=== PATIENT | male | born 1945 | race Caucasian/White ===

== ENCOUNTER 2020-12-01 17:06 | Emergency (ER) | payer MEDICARE ==
[2020-12-01] MEDS ORDERED: Zofran 4 MG/2 ML VIAL IV ONE (17:32)
[2020-12-01] MEDS ORDERED: Zofran 4 MG/2 ML VIAL ONE (17:32)
[2020-12-01] MEDS ORDERED: SUBLIMAZE 100 MCG/2 ML ONE ×2 (17:32→19:30)
[2020-12-01] MEDS ORDERED: SUBLIMAZE 100 MCG/2 ML IV ONE ×2 (17:32→19:25)
--- NOTE | 2020-12-01 17:48 | ERPHSYRPT ---
- History of Present Illness Source: patient Exam Limitations: no limitations Patient Subjective Stated Complaint: fall from ladder today, now has L hip and lower back pain and also L wrist pain Triage Nursing Assessment: pt to ED c/o fall from ladder today, approx 10 ft. did hit back of head, no LOC, does take warfarin at home. pt now c/o L hip, L wrist, and bilateral lower back pain rates 10/10 that is sharp with movement and ambulation. noted swelling to L wrist. L hip and back without signs of trauma. ambulatory with limp back to ED. limited ROM with L wrist Physician History: 75 yo wm fell off 10ft ladder in [place] earlier today. Pt is on coumadin for Afib. He denies LOC but did hit his head. He complains of L-spine/L-flank/L hip rigo n/mild C-spine pain/L wrist pain. Pt simply lost his balance on the ladder. Occurred: this afternoon Reason for Fall: slipped Injuries/Pain Location: neck, back, pelvis Loss of Consciousness: no loss of consciousness Quality: aching Severity of Pain-Max: severe Severity of Pain-Current: severe Modifying Factors: Improves With: movement Associated Symptoms (Fall): back pain, No abdominal pain, No confusion, No chest pain, No dizziness, No extremity injury, No headache, No lightheadedness, No muscle spasms, No nausea, No neck pain, No ringing in ears, No seizures, No sh ortness of breath, No slurred speech, No trouble walking, No vomiting, No vision changes Allergies/Adverse Reactions: No Known Drug Allergies Allergy (Verified 12/01/20 17:21) Home Medications: Aspirin [Oscar Aspirin] 81 mg PO DAILY 05/23/13 [History] Etodolac [Lodine] 500 mg PO BID 05/23/13 [History] Lansoprazole [Prevacid] 30 mg PO DAILY 05/23/13 [History] Lisinopril 40 mg PO DAILY 05/23/13 [History] Multivitamin [Daily Multivitamin] 1 each PO DAILY 05/23/13 [History] Paroxetine HCl [Paxil] 20 mg PO DAILY 05/23/13 [History] dilTIAZem HCl [Cardizem Cd] 120 mg PO DAILY 05/23/13 [History] Hydrochlorothiazide 25 mg [hydroDIURIL 25 MG] 25 mg PO DAILY 03/27/17 [History] Tamsulosin HCl 0.4 mg [Flomax 0.4 MG] 0.4 mg PO DAILY 03/27/17 [History] Warfarin Sodium 5 mg [Coumadin 5 MG] 0 mg PO UD 03/27/17 [History] Hx Tetanus, Diphtheria Vaccination/Date Given: Yes Hx Influenza Vaccination/Date Given: Yes Hx Pneumococcal Vaccination/Date Given: Yes (2019) Immunizations Up to Date: Yes Travel Risk - International Travel Have you traveled outside of the country in past 3 weeks: No - Coronavirus Screening Are you exhibiting any of the following symptoms?: No Close contact with a COVID-19 positive Pt in past 14-21 Days: No - Vaccine Status Have you recieved a Covid-19 vaccination: Yes [employer]: [employer] - Vaccination Dates Date of 1st Vaccination: 11/02/20 Date of 2cond Vaccination (if applicable): 11/15/20 Comment: dates approximate - Review of Systems Constitutional: No Symptoms Eyes: No Symptoms Ears, Nose, & Throat: No Symptoms Respiratory: No Symptoms Cardiac: No Symptoms Abdominal/Gastrointestinal: No Symptoms Genitourinary Symptoms: No Symptoms Skin: No Symptoms Neurological: No Symptoms Psychological: No Symptoms Endocrine: No Symptoms Hematologic/Lymphatic: No Symptoms Immunological/Allergic: No Symptoms - Past Medical History Pertinent Past Medical History: Yes Neurological History: Migraines ENT History: No Pertinent History Cardiac History: Arrhythmia, Other Respiratory History: No Pertinent History Endocrine Medical History: Diabetes Type II, Other Musculoskeletal History: Osteoarthritis GI Medical History: Colorectal Cancer, GERD History: Renal Disease Psycho-Social History: Anxiety, Depression Male Reproductive Disorders: No Pertinent History Other Medical History: colorectal CA 7 years ago, septic shock with multiple organ failure 09/2011. Colon CA removal, chemo, colostomy and reversal. R TKA 2018, Afib, Pacemaker - Past Surgical History Past Surgical History: Yes Neuro Surgical History: No Pertinent History Cardiac: Cardiac Catheterization, Pacemaker Respiratory: No Pertinent History Gastrointestinal: Bowel Surgery, Colon Resection, Hernia Repair Genitourinary: No Pertinent History Musculoskeletal: Orthopedic Surgery Male Surgical History: Prostate Surgery Other Surgical History: right knee milly placed after fx x four surgery,TURP - Social History Smoking Status: Former smoker Exposure to second hand smoke: No Drug Use: none Patient Lives Alone: No () Significant Family History: no pertinent family hx - Nursing Vital Signs Nursing Vital Signs: Initial Vital Signs Temperature 98.0 F 12/01/20 17:12 Pulse Rate 61 12/01/20 17:12 Respiratory Rate 20 12/01/20 17:12 Blood Pressure 161/74 12/01/20 17:12 O2 Sat by Pulse Oximetry 97 12/01/20 17:12 Pain Scale Pain Intensity 5 - Hari Coma Score Best Eye Response ([place]): (4) open spontaneously Best Verbal Response (Hari): (5) oriented Best Motor Response (Hari): (6) obeys commands Hari Total: 15 - Physical Exam General Appearance: no apparent distress Head Injury: tenderness (Mild occipital-superior cervical ttp) Eye Exam: PERRL/EOMI, eyes nml inspection ENT Exam: airway nml, No evidence of ENT injury, No clear fluid (ears), No clear fluid (nose) Neck Exam: supple, mid-line tenderness (Mild C-spine ttp) Respiratory/Chest Exam: normal breath sounds, No chest tenderness, No respiratory distress Cardiovascular Exam: normal heart sounds, regular rate/rhythm, No murmur Gastrointestinal Exam: soft, normal bowel sounds, No tenderness Back Exam: vertebral tenderness (L-spine-L flank area ttp) Extremity Exam: capillary refill <3 sec, pelvis stable (L-hip mildly ttp), No motor deficit Neurologic Exam: alert, oriented x 3, cooperative, cell changer II-XII nml as tested, normal mood/affect, nml station & gait, sensation nml Skin Exam: normal color, warm, dry SpO2 Interpretation: normal SpO2: 97 O2 Delivery: Room Air Procedures - Splinting Location of Splint: Left, Wrist Type of Splint: Orthoglass Short Arm Splint Splint Applied By: ED Physician Pre-Proc Neuro Vasc Exam: normal Post-Proc Neuro Vasc Exam: neurovascular intact - Course Nursing assessment & vital signs reviewed: Yes - Radiology Exams Wrist X-ray Interpretation: Interpreted by me (Distal radius fx) - CT Exams Head CT Interpretation: Discussed w/radiologist (NAD) Cervical Spine CT Interpretation: Discussed w/radiologist (DDD) Abdomen/Pelvis CT Interpretation: Discussed w/radiologist (L1 endplate fx) Ordered Tests: Active Orders 24 hr Category Date Time Status ABDOMEN AND PELVIS W CONTRAST [CT] Stat Exams 12/01/20 17:34 Taken CERVICAL SPINE WO CONTRAST [CT] Stat Exams 12/01/20 17:32 Taken HEAD WITHOUT CONTRAST [CT] Stat Exams 12/01/20 17:32 Taken WRIST (MIN 3 VIEWS) Stat Exams 12/01/20 18:51 Taken CBC W DIFF Stat Lab 12/01/20 17:30 Completed CMP Stat Lab 12/01/20 17:30 Completed PROTIME WITH INR Stat Lab 12/01/20 17:30 Completed PTT Stat Lab 12/01/20 17:30 Completed Medication Summary Discontinued Medications Generic Name Dose Route Start Last Admin Trade Name [place] PRN Reason Stop Dose Admin Hydrocodone Bitart/Acetaminophen 2 tab 12/01/20 19:40 12/01/20 19:46 [place] 5/325 Mg PO 12/01/20 19:41 2 tab SENT HOME W/ PATIENT ONE Administration Hydrocodone Bitart/Acetaminophen Confirm 12/01/20 19:45 [place] 5/325 Mg Administered 12/01/20 19:46 Dose 2 tab .ROUTE .STK-MED ONE Fentanyl Citrate 50 mcg 12/01/20 17:32 12/01/20 17:36 Sublimaze 100 Mcg/2 Ml IV 12/01/20 17:33 50 mcg STAT ONE Administration Fentanyl Citrate Confirm 12/01/20 17:32 Sublimaze 100 Mcg/2 Ml Administered 12/01/20 17:33 Dose 100 mcg .ROUTE .STK-MED ONE Fentanyl Citrate 50 mcg 12/01/20 19:25 12/01/20 19:31 Sublimaze 100 Mcg/2 Ml IV 12/01/20 19:26 50 mcg STAT ONE Administration Fentanyl Citrate Confirm 12/01/20 19:30 Sublimaze 100 Mcg/2 Ml Administered 12/01/20 19:31 Dose 100 mcg .ROUTE .STK-MED ONE Ondansetron HCl 4 mg 12/01/20 17:32 12/01/20 17:35 Zofran 4 Mg/2 Ml Vial IV 12/01/20 17:33 4 mg STAT ONE Administration Ondansetron HCl Confirm 12/01/20 17:32 Zofran 4 Mg/2 Ml Vial Administered 12/01/20 17:33 Dose 4 mg .ROUTE .STK-MED ONE Lab/Rad Data: Laboratory Result Diagrams 12/01/20 17:30 12/01/20 17:30 Laboratory Results 12/01/20 12/01/20 12/01/20 Range/Units 17:30 17:30 17:30 WBC 6.0 (4.0-10.5) K/mm3 RBC 4.16 (4.1-5.6) M/mm3 Hgb 12.4 L (12.5-18.0) gm/dl Hct 37.3 L (42-50) % MCV 89.7 (78-100) fl MCH 29.8 (26-32) pg MCHC 33.2 (32-36) g/dl RDW 14.9 H (11.5-14.0) % Plt Count 152 (150-450) K/mm3 MPV 9.9 (7.5-11.0) fl Gran % 66.5 H (36.0-66.0) % Eos # (Auto) 0.07 (0-0.5) Absolute Lymphs (auto) 1.38 (1.0-4.6) Absolute Monos (auto) 0.54 (0.0-1.3) Lymphocytes % 23.0 L (24.0-44.0) % Monocytes % 9.0 (0.0-12.0) % Eosinophils % 1.2 (0.00-5.0) % Basophils % 0.3 (0.0-0.4) % Absolute Granulocytes 3.98 (1.4-6.9) Basophils # 0.02 (0-0.4) PT 19.3 H (8.83-12.87) SECONDS INR 1.70 (0.8-3.0) APTT 35.6 (24.1-36.1) SECONDS Sodium 139 (137-145) mmol/L Potassium 3.7 (3.5-5.1) mmol/L Chloride 101 (98-107) mmol/L Carbon Dioxide 28 (22-30) mmol/L Anion Gap 13.1 (5-15) MEQ/L BUN 22 H (9-20) mg/dL Creatinine 1.22 (0.66-1.25) mg/dL Estimated GFR > 60.0 ML/MIN Glucose 106 (74-106) mg/dL Calcium 9.8 (8.4-10.2) mg/dL Total Bilirubin 0.40 (0.2-1.3) mg/dL AST 67 H (17-59) U/L ALT 50 (0-50) U/L Alkaline Phosphatase 78 (38-126) U/L Serum Total Protein 7.2 (6.3-8.2) g/dL Albumin 4.3 (3.5-5.0) g/dL - Progress Progress: improved Progress Note: 12/01/20 19:37 50mg IV Fentanyl/4mg IV Zofran 50umg IV Fentanyl - Departure Departure Disposition: Home Clinical Impression: Compression fracture, Radius fracture Condition: Stable Critical Care Time: No Referrals: MERRICK DIAZ [Primary Care Provider] - Instructions: Vertebral Compression Fracture (DC), Radius Fracture (DC) Additional Instructions: Ice for 12-24 hours to left wrist Pain meds as needed Follow up with [facility] in [place] for left radius fracture Activity as tolerated Prescriptions: Hydrocodone/Acetaminophen [Hydrocodone-Acetamin 10-325 mg] 1 each PO Q4H PRN PRN #10 tablet MDD 4 tabs PRN Reason: Pain
[2020-12-01 17:49] LABS: Absolute Neutrophil Ct (ANC) 3.98 (1.4-6.9); BASOPHIL % 0.3 % (0.0-0.4); Basophil (Absolute #) 0.02 (0-0.4); Eosinophil % 1.2 % (0.00-5.0); Eosinophil (Absolute #) 0.07 (0-0.5); Hematocrit 37.3 % (42-50); Hemoglobin 12.4 gm/dl (12.5-18.0); Lymphocyte (Absolute #) 1.38 (1.0-4.6); Mean Cell Volume 89.7 fl (78-100); Mean Corpuscular Hemoglobin 29.8 pg (26-32); Mean Corpuscular Hgb Concent. 33.2 g/dl (32-36); Mean Platelet Volume 9.9 fl (7.5-11.0); Monocyte (Absolute #) 0.54 (0.0-1.3); Neutrophil % 66.5 % (36.0-66.0); Platelet Count 152 K/mm3 (150-450); Red Blood Count 4.16 M/mm3 (4.1-5.6); Red Cell Distribution Width 14.9 % (11.5-14.0)
[2020-12-01 17:59] LABS: INR 1.7 (0.8-3.0); PROTIME 19.3 SECONDS (8.83-12.87)
[2020-12-01 18:01] LABS: PTT 35.6 SECONDS (24.1-36.1)
[2020-12-01 18:04] LABS: ALBUMIN 4.3 g/dL (3.5-5.0); ALKALINE PHOSPHATASE 78 U/L (38-126); ANION GAP 13.1 MEQ/L (5-15); BLOOD UREA NITROGEN 22 mg/dL (9-20); CHLORIDE 101 mmol/L (98-107); Calcium 9.8 mg/dL (8.4-10.2); Carbon Dioxide 28 mmol/L (22-30); Creatinine 1 1.22 mg/dL (0.66-1.25); EST GLOMERULAR FILTRATION RATE > 60.0 ML/MIN; Glucose 106 mg/dL (74-106); Potassium 3.7 mmol/L (3.5-5.1); SGOT/AST 67 U/L (17-59); SGPT/ALT 50 U/L (0-50); SODIUM 139 mmol/L (137-145); Total Protein 7.2 g/dL (6.3-8.2)
[2020-12-01 19:33] VITALS: BP 139/71; PULSE 60
[2020-12-01] MEDS ORDERED: NORCO 5/325 MG PO ONE (19:40)
[2020-12-01 19:41] VITALS: O2SAT 97
[2020-12-01] MEDS ORDERED: NORCO 5/325 MG ONE (19:45)
--- NOTE | 2020-12-02 08:35 | XRAY ---
Indication: Head injury following 10 feet fall. Multiple contiguous axial images obtained through the cervical spine. Sagittal and coronal reformatted images obtained. Comparison: None Axial images negative for acute fracture, suspicious bony lesions, or spinal canal stenosis. There is mild/moderate multilevel degenerative endplate spurring and bilateral degenerative facet hypertrophy. Sagittal and coronal reformatted images demonstrates normal alignment with multilevel degenerative disc space loss. No acute compression fracture, subluxation, or jumped facet. Normal appearing craniocervical junction. Visualized noncontrasted soft tissues demonstrates minimal bilateral carotid calcifications and partially visualized left cardiac pacer leads. Lung apices are clear. Impression: 1. Multilevel degenerative spondylosis. 2. Negative for acute fracture/subluxation.
--- NOTE | 2020-12-02 08:37 | XRAY ---
Indication: Head injury following 10 feet fall. Multiple contiguous axial images obtained through the head without contrast. Comparison: None Age-appropriate global atrophy. No acute intracranial hemorrhage, abnormal extra-axial fluid collection, or mass effect. Fourth ventricle is midline without hydrocephalus. [place]-white matter differentiation preserved. Bony calvarium intact. Visualized paranasal sinuses and mastoid air cells are clear. Impression: Negative CT head without contrast exam.
--- NOTE | 2020-12-02 08:42 | XRAY ---
Indication: Back and left hip pain following 10 feet fall. Multiple contiguous axial images obtained through the abdomen and pelvis using 80 cc Isovue 370 contrast. Comparison: February 22, 2019. Lung bases again demonstrates minimal fibrosis/scarring and tiny right costophrenic angle calcified granuloma. No infiltrate or effusion. Heart is not enlarged. Stable small hiatal hernia. Noncontrasted stomach and bowel loops nonobstructed. No free fluid/air. Again incidental benign prostate calcifications, urinary bladder diverticulum, right renal cyst, fatty liver, and 16.2 cm splenomegaly. Remaining liver, gallbladder, pancreas, spleen, adrenal glands, kidneys, ureters, and bladder are unremarkable. There remains moderate scattered aortoiliac calcifications with minimal distal aortic ectasia. No pathologic retroperitoneal lymphadenopathy. Osseous structures demonstrates new minimally depressed L1 superior endplate fracture with less than 25% height loss. Stable mild degenerative changes throughout the thoracolumbar spine/both hips, old left humeral 11 rib fracture, and old nonunited left L1-L4 transverse process fractures. Impression: 1. New L1 superior endplate fracture without spinal canal or foraminal compromise. 2. Stable incidental small hiatal hernia, benign prostate calcifications, urinary bladder diverticulum, fatty liver, splenomegaly, right renal cyst, scattered arteriosclerotic disease, and chronic bony findings.
--- NOTE | 2020-12-02 08:48 | XRAY ---
Indication: Pain following fall. Comparison: None 3 view left wrist demonstrates nondisplaced comminuted distal radius fracture with intra-articular extension and soft tissue swelling. Elsewhere mild osteopenia and 4 mm foreign body anterior to ulna.
== END 2020-12-01 19:53 | disposition home or self-care (01) ==
LOC: ED 17:06
DX: S52.92XA Unspecified fracture of left forearm, initial encounter for closed fracture (principal); M25.552 Pain in left hip; M54.5 Low back pain; W11.XXXA Fall on and from ladder, initial encounter; I48.91 Unspecified atrial fibrillation; Z79.01 Long term (current) use of anticoagulants; E11.9 Type 2 diabetes mellitus without complications; Z85.038 Personal history of other malignant neoplasm of large intestine; N28.9 Disorder of kidney and ureter, unspecified; F41.8 Other specified anxiety disorders
CPT/HCPCS: 36000; 36415; 70450; 72125; 73110; 74177; 80053; 85025; 85610; 85730; 96374; 96375; 96376; 99284; J2405; J3010; A9270-GY